=== PATIENT | male | born 1960 | race Caucasian/White ===

== ENCOUNTER 2018-07-12 09:22 | Emergency (ER) | payer OTHER ==
--- NOTE | 2018-07-12 09:37 | EDPHY ---
H & P Stated Complaint: L groin pain Time Seen by Provider: 07/12/18 09:34 - Personal History Current Tetanus/Diphtheria Vaccine: Yes Current Tetanus Diphtheria and Acellular Pertussis (TDAP): Yes - Medical/Surgical History Hx Asthma: No Hx Chronic Respiratory Disease: No Hx Diabetes: No Hx Cardiac Disease: No Hx Renal Disease: No Hx Cirrhosis: No Hx Alcoholism: No Hx HIV/AIDS: No Hx Splenectomy or Spleen Trauma: No Other PMH: R ankle repair - Social History Smoking Status: Former smoker Constitutional: Initial Vital Signs Temperature (C) 38.1 C 07/12/18 09:28 Heart Rate 109 H 07/12/18 09:28 Respiratory Rate 16 07/12/18 09:28 Blood Pressure 144/89 H 07/12/18 09:28 O2 Sat (%) 94 07/12/18 09:28 O2 Delivery Mode Room Air Allergies/Adverse Reactions: No Known Allergies Allergy (Unverified 07/12/18 09:27) Home Medications: Medication Instructions Recorded Allopurinol 07/12/18 Aspirin 07/12/18 Tylenol 07/12/18 Medical Decision Making - Diagnostics Imaging Results: Imaging Impressions Abdomen/Pelvis CT 07/12/18 09:43 Impression: 1. Bilateral nonobstructive nephrolithiasis. 2. Not obviously inflamed Meckel's diverticulum. 3. Diverticulosis without evidence of diverticulitis. 4. Atherosclerotic disease without aneurysm formation. Results discussed with Dr. Guillermo Oneal at 10:30 AM. General information for patients regarding this examination can be found at [email or web address]. If you have questions or comments about this report, please contact me at (hospital) or [phone] (cell). Imaging: Discussed imaging studies w/ clinical lab scientist Radiologist ED Course/Re-evaluation: CHIEF COMPLAINT: Left groin pain, headache. HISTORY OF PRESENT ILLNESS: This patient is a 57 year old male complaining of left groin pain. Yesterday he noted bilateral flank pain and fatigue. Today, his flank pain has largely resolved but he has pain localized over his left groin area. He endorses associated low-grade fever, nausea, and headache. He has taken aspirin and Tylenol for relief. He notes his urine appears dark and he endorses some very mild dysuria. He denies any testicular pain. The patient denies known history of kidney stones. He denies chest pain, shortness of breath, vomiting, diarrhea , weakness, or other associated symptoms. REVIEW OF SYSTEMS: A comprehensive 10 system review of systems is otherwise negative aside from elements mentioned in the history of present illness and medical decision making. PHYSICAL EXAM: HR, BP, O2 Sat, RR. Temp noted General Appearance: Alert, well hydrated, appropriate, and non-toxic appearing. Head: Atraumatic without scalp tenderness or obvious injury Eyes: Pupils equal, round, reactive to light and accommodation, EOMI, no trauma , no injection. Ears: Clear bilaterally, no perforation, normal landmarks Nose: Atraumatic, no rhinorrhea, clear. Throat: There is no erythema or exudates, no lesions, normal tonsils, mucus membranes moist. Neck: Supple, 2+ carotid upstroke, nontender, no lymphadenopathy. Respiratory: No retractions, no distress, no wheezes, and no accessory muscle use. Lungs are clear to auscultation bilaterally. Cardiovascular: Regular rate and rhythm, no murmurs, rubs, or gallops. Bilateral carotid, radial, dorsalis pedis, and posterior tibial pulses intact. Good capillary refill all extremities. Gastrointestinal: Tenderness to left inguinal area. Abdomen is soft, non- distended, no masses, no rebound, no guarding, no peritoneal signs. Musculoskeletal: Normal active ROM of all extremities, atraumatic. Neurological: Alert, appropriate, and interactive. The patient has normal DTRs and non-focal cranial nerves, motor, sensory, and cerebellar exam. Skin: No rashes, good turgor, no nodules on palpation. Past medical history: Hepatitis C. Past surgical history: Orthopedic surgery. Family history: Noncontributory. Social history: Lives in [place]. . at bedside. DIFFERENTIAL DIAGNOSIS: The differential diagnosis for the patient's flank pain included but was not limited to musculoskeletal causes, kidney stone, pyelonephritis, shingles, diverticulitis, appendicitis, and aortic aneurysm. MEDICAL DECISION [id number] y/o male presents with left groin pain and associated mild nausea, headache, and dysuria. On exam, the patient has tenderness to the left inguinal area. He has no reproducible flank pain today. Plan for labs including CBC, chemistries, UA. Plan for CT abdomen/pelvis without contrast for further evaluation. Plan to administer 30mg IV Toradol, 4mg IV Zofran, and 1L IV NS for symptom relief. 10:00 Reviewed laboratory studies. WBC elevated with left shift. Hematocrit elevated. Query sleep apnea. 10:[address] Jansen, radiologist. Evidence of renal calculi, nonobstructive. Incidental finding of Meckel's diverticulum. Recommend follow up with general surgery. Reassessed patient. Discussed imaging and laboratory results. Plan to discharge home in good condition with referral to urology and general surgery. During our conversation the patient and his report that the patient snores heavily and has frequent breath-holding episodes. I recommended he follow up for a sleep study for evaluation of possible JOHAN. Referral to sleep physician provided as well. Follow up and return precautions discussed. The patient is comfortable with this plan. - Data Points Laboratory Results: Laboratory Results 07/12/18 09:45 1018 09:45 07/12/18 07/12/18 07/12/18 09:45 09:45 09:45 WBC 13.77 10^3/uL H 10^3/uL (3.80-9.50) RBC 5.64 10^6/uL 10^6/uL (4.40-6.38) Hgb 18.4 g/dL H g/dL (13.7-17.5) Hct 53.0 % H % (40.0-51.0) MCV 94.0 fL fL (81.5-99.8) MCH 32.6 pg pg (27.9-34.1) MCHC 34.7 g/dL g/dL (32.4-36.7) RDW 12.9 % % (11.5-15.2) Plt Count 277 10^3/uL 10^3/uL (150-400) MPV 8.7 fL fL (8.7-11.7) Neut % (Auto) 86.6 % H % (39.3-74.2) Lymph % (Auto) 6.4 % L % (15.0-45.0) [place] % (Auto) 6.0 % % (4.5-13.0) Eos % (Auto) 0.1 % L % (0.6-7.6) Baso % (Auto) 0.4 % % (0.3-1.7) Nucleat RBC Rel Count 0.0 % % (0.0-0.2) Absolute Neuts (auto) 11.94 10^3/uL H 10^3/uL (1.70-6.50) Absolute Lymphs (auto) 0.88 10^3/uL L 10^3/uL (1.00-3.00) Absolute Monos (auto) 0.82 10^3/uL H 10^3/uL (0.30-0.80) Absolute Eos (auto) 0.01 10^3/uL L 10^3/uL (0.03-0.40) Absolute Basos (auto) 0.05 10^3/uL 10^3/uL (0.02-0.10) Absolute Nucleated RBC 0.00 10^3/uL 10^3/uL (0-0.01) Immature Gran % 0.5 % % (0.0-1.1) Immature Gran # 0.07 10^3/uL 10^3/uL (0.00-0.10) Sodium 139 mEq/L mEq/L (135-145) Potassium 4.7 mEq/L mEq/L (3.3-5.0) Chloride 103 mEq/L mEq/L (97-110) Carbon Dioxide 23 mEq/l mEq/l (22-31) Anion Gap 13 mEq/L mEq/L (6-14) BUN 19 mg/dL mg/dL (7-23) Creatinine 1.0 mg/dL mg/dL (0.7-1.3) Estimated GFR > 60 Glucose 120 mg/dL H mg/dL (70-100) Calcium 9.7 mg/dL mg/dL (8.5-10.4) Urine Color YELLOW Urine Appearance HAZY Urine pH 5.0 (5.0-7.5) Ur Specific [place] 1.025 (1.002-1.030) Urine Protein 1+ H (NEGATIVE) Urine Ketones NEGATIVE (NEGATIVE) Urine Blood 1+ H (NEGATIVE) Urine Nitrate NEGATIVE (NEGATIVE) Urine Bilirubin NEGATIVE (NEGATIVE) Urine Urobilinogen NEGATIVE EU EU (0.2-1.0) Ur Leukocyte Esterase NEGATIVE (NEGATIVE) Urine RBC 1-3 /hpf /hpf (0-3) Urine WBC 1-3 /hpf /hpf (0-3) Ur Epithelial Cells TRACE /lpf /lpf (NONE-1+) Hyaline Casts 1-5 /lpf /lpf (0-1) Urine Mucus 1+ /lpf /lpf (NONE-1+) Urine Glucose NEGATIVE (NEGATIVE) Medications Given: Discontinued Medications Sodium Chloride (Ns) 1,000 mls @ 0 mls/hr IV ONCE ONE; Wide Open PRN Reason: Protocol Stop: 07/12/18 09:44 Last Admin: 07/12/18 09:58 Dose: 1,000 mls Ketorolac Tromethamine (Toradol) 30 mg IVP EDNOW ONE Stop: 07/12/18 09:44 Last Admin: 07/12/18 09:58 Dose: 30 mg Ondansetron HCl (Zofran) 4 mg IVP EDNOW ONE Stop: 07/12/18 09:44 Last Admin: 07/12/18 09:58 Dose: 4 mg Departure - Departure Disposition: Home, Routine, Self-Care Clinical Impression: Kidney stones, Meckel diverticulum Condition: Good Instructions: Kidney Stones (ED) Additional Instructions: 1. Follow up with urology for recurrent symptoms. 2. On your CT, there was a incidental finding of Meckel's diverticulum. Follow up with general surgery for discussion of this. 3. We recommend you follow up for a sleep study for sleep apnea. We have referred you to Dr. Moore at [facility]. 4.Return to the emergency department for fever, severe pain, inability to urinate or other concerns. Referrals: Marcial English MD [Medical Doctor] - As per Instructions Josias Russo MD [Medical Doctor] - As per Instructions Kwabena Moore MD [Medical Doctor] - As per Instructions Report Scribed for: Guillermo Oneal Report Scribed by: Sari Samuel Date of Report: 07/12/18 Time of Report: 10:42
[2018-07-12] MEDS ORDERED: NS 1,000 ML IV ONE (09:43)
[2018-07-12] MEDS ORDERED: KETOROLAC 30 MG/1 ML SDV IVP ONE (09:43)
[2018-07-12] MEDS ORDERED: ONDANSETRON 4 MG/2 ML VIAL IVP ONE (09:43)
[2018-07-12 09:59] LABS: PLATELET COUNT 277 10^3/uL (150-400)
[2018-07-12 10:48] VITALS: BP 106/62
== END 2018-07-12 10:58 | disposition home or self-care (01) ==
DX: N20.0 Calculus of kidney (principal); Q43.0 Meckel's diverticulum (displaced) (hypertrophic); B19.20 Unspecified viral hepatitis C without hepatic coma; Z87.891 Personal history of nicotine dependence
CPT/HCPCS: 96374; J1885; J2405